=== PATIENT | male | born 1995 | race Caucasian/White ===

== ENCOUNTER 2018-02-16 20:10 | Emergency (ER) | payer MEDICAID ==
[2018-02-16] MEDS ORDERED: NS 2,000 ML IV ONE (20:57)
[2018-02-16] MEDS ORDERED: KETOROLAC 15 MG/1 ML SDV IVP ONE (20:58)
[2018-02-16] MEDS ORDERED: DEXAMETHASONE 10 MG/ML VIAL IVP ONE (20:58)
--- NOTE | 2018-02-16 20:59 | EDPHY ---
H & P Stated Complaint: sore throat, cough Time Seen by Provider: 02/16/18 20:30 HPI/ROS: CHIEF COMPLAINT: Sore throat, feeling ill for 2 weeks HISTORY OF PRESENT ILLNESS: 22-year-old immunocompetent male via private vehicle complaining of 2 weeks of sore throat, fatigue. No rash. No nuchal rigidity. No fever no chills. No back or flank pain. No abdominal pain. No rash. No urinary abnormality. REVIEW OF SYSTEMS: 10 systems reviewed and negative with the exception of the elements mentioned in the history of present illness PAST MEDICAL & SURGICAL HISTORY: Asthma SOCIAL HISTORY: Positive for marijuana smoking PHYSICAL EXAM (Prior to examination, patient consented to physical exam, hands were washed and my usual and customary physical exam procedures followed) 1) GENERAL: Well-developed, well-nourished, alert and oriented. Appears to be in no acute distress. 2) HEAD: Normocephalic, atraumatic 3) HEENT: Pupils equal, round, reactive to light bilaterally. Sclera anicteric. Nasopharynx: Clear. oropharynx, clear, no lesions. Moist mucous membranes. Bilateral tonsils are symmetrically enlarged with white exudate. Uvula midline. No trismus no drooling. No hot potato voice. Ears bilaterally with normal tympanic membranes. 4) NECK: Full range of motion, no meningeal signs. Positive submandibular tender adenopathy. No crepitus. 5) LUNGS: Clear auscultation bilaterally, no wheezes, no rhonchi, no retractions. 6) HEART: Regular rate and rhythm, no murmur, no heave, no gallop. 7) ABDOMEN: No guarding, no rebound, no focal tenderness, negative McBurney's, negative Bettencourt's, negative Rovsing's, negative peritoneal sign, 8) MUSCULOSKELETAL: Moving all extremities, no focal areas of tenderness, no obvious trauma. No peripheral edema or discoloration. 9) BACK: No CVA tenderness, no midline vertebral tenderness, no fluctuance, no step-off, no obvious trauma, no visual or palpable abnormality. 10) SKIN: No rash, no petechiae. 11) Psychiatric: Patient is oriented X 3, there is no agitation. DIFFERENTIAL DIAGNOSIS: In no particular order, my differential diagnosis includes, but is not limited to, strep pharyngitis, viral pharyngitis, peritonsillar abscess, retropharyngeal abscess or plegmon, mononucleosis, meningitis, Lemierre syndrome. - Medical/Surgical History Hx Asthma: Yes Hx Chronic Respiratory Disease: No Hx Diabetes: No Hx Cardiac Disease: No Hx Renal Disease: No Hx Cirrhosis: No Hx Alcoholism: No Hx HIV/AIDS: No Hx Splenectomy or Spleen Trauma: No Other PMH: asthma/peanut allergy - Social History Smoking Status: Former smoker Constitutional: Initial Vital Signs Temperature (C) 36.8 C 02/16/18 20:14 Heart Rate 128 H 02/16/18 20:14 Respiratory Rate 20 02/16/18 20:14 Blood Pressure 139/109 H 02/16/18 20:14 O2 Sat (%) 96 02/16/18 20:14 O2 Delivery Mode Room Air Allergies/Adverse Reactions: tree nut Allergy (Verified 02/16/18 20:13) Home Medications: Medication Instructions Recorded Albuterol 11/27/15 EPINEPHRINE [EPIPEN] 0.3 mg IM ONCE #2 syr 11/27/15 Amoxicillin/Clavulanate Pot 875 mg PO BID #14 tab 02/16/18 [Augmentin 875 mg tab] Medical Decision Making ED Course/Re-evaluation: Care of patient under supervision of secondary supervising physician Dr Mims . Re-evaluation with serial exams most recently at 10:15 p.m. He is resting comfortably. Heart rate in the 90s. Negative strep testing which was obtained prior to my evaluating the patient. Negative mono testing. High clinical suspicion for strep pharyngitis based on patient's presenting signs and symptoms. Recommend empiric treatment. Given Augmentin. Given Decadron in the ER. Recommend follow up with ENT on Monday or Monday (today is Monday night). Usual and customary pharyngitis precautions instructions provided. - Data Points Laboratory Results: 02/16/18 02/16/18 02/16/18 Unknown 21:10 20:40 Monoscreen NEGATIVE (NEGATIVE) Group A Strep Screen NEGATIVE (NEGATIVE) Group A Strep DNA Pending Medications Given: Discontinued Medications Amoxicillin/Clavulanate Potassium (Augmentin 875mg) 875 mg PO EDNOW ONE PRN Reason: Protocol Stop: 02/16/18 22:41 Last Admin: 02/16/18 22:41 Dose: 875 mg Dexamethasone (Decadron Injection) 10 mg IVP EDNOW ONE Stop: 02/16/18 20:59 Last Admin: 02/16/18 21:03 Dose: 10 mg Sodium Chloride (Ns) 2,000 mls @ 0 mls/hr IV ONCE ONE PRN Reason: Wide Open Stop: 02/16/18 20:58 Last Admin: 02/16/18 21:03 Dose: 2,000 mls Ketorolac Tromethamine (Toradol) 15 mg IVP EDNOW ONE Stop: 02/16/18 20:59 Last Admin: 02/16/18 21:03 Dose: 15 mg Departure - Departure Disposition: Home, Routine, Self-Care Clinical Impression: Strep pharyngitis Condition: Good Instructions: Amoxicillin/Clavulanate Potassium (By mouth), Strep Throat (ED) Additional Instructions: Return to the ER immediately if you cannot swallow, have drooling, fevers, neck stiffness, cannot open your jaw, or any other symptoms that concern you. Referrals: Tre Perales MD [Medical Doctor] - As per Instructions Stand Alone Forms: Work Excuse Prescriptions: Amoxicillin/Clavulanate Pot [Augmentin 875 mg tab] 875 mg PO BID #14 tab
[2018-02-16] MEDS ORDERED: AMOXICILLIN/CLAVULANATE POT 875/125 MG TAB PO ONE ×2 (22:38→22:40)
[2018-02-16 22:50] VITALS: BP 128/74
[2018-02-17 11:17] LABS: GROUP A STREP DNA (THROAT) POSITIVE (NEGATIVE)
== END 2018-02-16 22:30 | disposition home or self-care (01) ==
DX: J02.0 Streptococcal pharyngitis (principal)
CPT/HCPCS: 96374; J1100; J1885

== ENCOUNTER 2018-05-06 09:13 | Inpatient (IN) | payer MEDICAID ==
[2018-05-06] MEDS ORDERED: ACETAMINOPHEN 500 MG TAB PO ONE (09:27)
[2018-05-06] MEDS ORDERED: NS 1,000 ML IV ONE (09:27)
[2018-05-06] MEDS ORDERED: methylPREDNISolone SOD SUCC 125 MG/2 ML VIAL IVP ONE (09:27)
[2018-05-06] MEDS ORDERED: IBUPROFEN 800 MG TAB PO ONE (09:27)
[2018-05-06] MEDS ORDERED: IPRATROPIUM/ALBUTEROL 3 ML DEYVIAL IH ONE (09:27)
--- NOTE | 2018-05-06 09:30 | EDPHY ---
H & P Stated Complaint: fever, chills, cough x 5 days Time Seen by Provider: 05/06/18 09:16 HPI/ROS: CHIEF COMPLAINT: Flu-like symptoms x5 days HISTORY OF PRESENT ILLNESS: 22-year-old old immunocompetent male with history of asthma, up-to-date influenza vaccination, complaining of dyspnea, fever, productive cough for the past 5 days. No nuchal rigidity. No headache. No nausea or vomiting. PRIMARY CARE PROVIDER: REVIEW OF SYSTEMS: 10 systems reviewed and negative with the exception of the elements mentioned in the history of present illness PAST MEDICAL & SURGICAL HISTORY: Asthma. Up-to-date influenza vaccination SOCIAL HISTORY: Nonsmoker PHYSICAL EXAM (Prior to examination, patient consented to physical exam, hands were washed and my usual and customary physical exam procedures followed) 1) GENERAL: Well-developed, well-nourished, alert and oriented.. 2) HEAD: Normocephalic, atraumatic 3) HEENT: Pupils equal, round, reactive to light bilaterally. Sclera anicteric. Nasopharynx: Rhinorrhea. oropharynx, clear, no lesions. Dry mucous membranes. Ears bilaterally with normal tympanic membranes. No evidence of otitis media otitis externa 4) NECK: Full range of motion, no meningeal signs. 5) LUNGS: Bilateral end-expiratory wheeze in bibasilar rales. 6) HEART: Regular rate and rhythm, no murmur, no heave, no gallop. 7) ABDOMEN: No guarding, no rebound, no focal tenderness, negative McBurney's, negative Bettencourt's, negative Rovsing's, negative peritoneal sign, 8) MUSCULOSKELETAL: Moving all extremities, no focal areas of tenderness, no obvious trauma. No peripheral edema or discoloration. 9) BACK: No CVA tenderness, no midline vertebral tenderness, no fluctuance, no step-off, no obvious trauma, no visual or palpable abnormality. 10) SKIN: No rash, no petechiae. 11) Psychiatric: Patient is oriented X 3, there is no agitation. DIFFERENTIAL DIAGNOSIS: In no particular order including but not limited to pneumonia, bronchitis, influenza, meningitis - Personal History Current Tetanus Diphtheria and Acellular Pertussis (TDAP): Yes - Medical/Surgical History Hx Asthma: Yes Hx Chronic Respiratory Disease: No Hx Diabetes: No Hx Cardiac Disease: No Hx Renal Disease: No Hx Cirrhosis: No Hx Alcoholism: No Hx HIV/AIDS: No Hx Splenectomy or Spleen Trauma: No Other PMH: asthma/peanut allergy - Social History Smoking Status: Former smoker Constitutional: Initial Vital Signs Temperature (C) 37.9 C 05/06/18 09:14 Heart Rate 146 H 05/06/18 09:14 Respiratory Rate 28 H 05/06/18 09:14 Blood Pressure 134/71 H 05/06/18 09:14 O2 Sat (%) 96 05/06/18 09:14 O2 Delivery Mode Room Air Allergies/Adverse Reactions: tree nut Allergy (Verified 05/06/18 09:18) Home Medications: Medication Instructions Recorded Albuterol [Proventil Inhaler HFA 1 - 2 puffs IH Q4H PRN 05/06/18 (*)] EPINEPHRINE [EPIPEN] 0.3 mg IM ONCE PRN 05/06/18 Fluticasone/Salmeter 250/50Mcg 1 puffs IH BID 05/06/18 [Advair 250/50 (*)] Medical Decision Making - Diagnostics Imaging Results: Imaging Impressions Chest X-Ray 05/06/18 09:25 Impression: 1. Perihilar bronchitis/reactive airways' disease. 2. Superimposed perihilar subsegmental atelectasis versus minimal infiltrates are not excluded. Findings were discussed with Armando Dickson PA-C at 10:35, on 05/06/2018. ED Course/Re-evaluation: 9:30 a.m.: Will obtain diagnostic studies including influenza testing, chest x- ray. Care of patient under supervision of secondary supervising physician Dr Armstrong with whom I discussed case. 11:46 a.m.: Patient has received 2 L of IV fluid and 1st dose of Tamiflu. He has been re-evaluated with serial exams. This time he remains tachycardic in the 120s, saturations on room air in the high 80s. Will plan on admission for influenza pneumonia and hypoxemia. 11:57 a.m.: Consultation with hospitalist, admit to Dr. Jensen - Data Points Laboratory Results: Laboratory Results 05/06/18 09:30 05/06/18 09:30 05/06/18 05/06/1819 09:30 09:30 09:30 WBC RBC Hgb Hct MCV MCH MCHC RDW Plt Count MPV Neut % (Auto) Lymph % (Auto) [place] % (Auto) Eos % (Auto) Baso % (Auto) Nucleat RBC Rel Count Absolute Neuts (auto) Absolute Lymphs (auto) Absolute Monos (auto) Absolute Eos (auto) Absolute Basos (auto) Absolute Nucleated RBC Immature Gran % Seg Neutrophils % Band Neutrophils % Lymphocytes % Monocytes % Eosinophils % Basophils % Metamyelocytes % Myelocytes % Promyelocytes % Blast Cells % Immature Gran # Absolute Seg Neuts Absolute Band Neuts Absolute Lymphocytes Absolute Monocytes Absolute Eosinophils Absolute Basophils Absolute Metamyelocyte Absolute Myelocytes Absolute Promyelocytes Absolute Plasma Cells Nucleated RBCs RBC/WBC/PLT Morphology Absolute Blast Cells Plasma Cells % Platelet Estimate PT 14.2 SEC SEC (12.0-15.0) INR 1.08 (0.83-1.16) APTT 40.0 SEC H SEC (23.0-38.0) VBG Lactic Acid Sodium 136 mEq/L mEq/L (135-145) Potassium 3.8 mEq/L mEq/L (3.5-5.2) Chloride 105 mEq/L mEq/L (97-110) Carbon Dioxide 20 mEq/l L mEq/l (22-31) Anion Gap 11 mEq/L mEq/L (6-14) BUN 10 mg/dL mg/dL (7-23) Creatinine 0.7 mg/dL mg/dL (0.7-1.3) Estimated GFR > 60 Glucose 133 mg/dL H mg/dL (70-100) Calcium 8.8 mg/dL mg/dL (8.5-10.4) Total Bilirubin 0.6 mg/dL mg/dL (0.1-1.4) Nasal Influenza A PCR FLU A DETECTED H (NEGATIVE) Nasal Influenza B PCR NEGATIVE FOR FLU B (NEGATIVE) 05/06/18 05/06/18 09:30 09:30 WBC 8.46 10^3/uL 10^3/uL (3.80-9.50) RBC 5.29 10^6/uL 10^6/uL (4.40-6.38) Hgb 14.9 g/dL g/dL (13.7-17.5) Hct 43.6 % % (40.0-51.0) MCV 82.4 fL fL (81.5-99.8) MCH 28.2 pg pg (27.9-34.1) MCHC 34.2 g/dL g/dL (32.4-36.7) RDW 13.0 % % (11.5-15.2) Plt Count 130 10^3/uL L 10^3/uL (150-400) MPV 10.9 fL fL (8.7-11.7) Neut % (Auto) Not Reported Lymph % (Auto) Not Reported [place] % (Auto) Not Reported Eos % (Auto) Not Reported Baso % (Auto) Not Reported Nucleat RBC Rel Count Not Reported Absolute Neuts (auto) Not Reported Absolute Lymphs (auto) Not Reported Absolute Monos (auto) Not Reported Absolute Eos (auto) Not Reported Absolute Basos (auto) Not Reported Absolute Nucleated RBC Not Reported Immature Gran % Not Reported Seg Neutrophils % 57.4 % % Band Neutrophils % 30.7 % % Lymphocytes % 5.0 % % Monocytes % 6.9 % % Eosinophils % 0.0 % % Basophils % 0.0 % % Metamyelocytes % 0.0 % % Myelocytes % 0.0 % % Promyelocytes % 0.0 % % Blast Cells % 0.0 % % Immature Gran # Not Reported Absolute Seg Neuts 4.86 10^3/uL 10^3/uL (1.70-6.50) Absolute Band Neuts 2.60 10^3/uL H 10^3/uL (0.00-0.70) Absolute Lymphocytes 0.42 10^3/uL L 10^3/uL (1.00-3.00) Absolute Monocytes 0.58 10^3/uL 10^3/uL (0.30-0.80) Absolute Eosinophils 0.00 10^3/uL L 10^3/uL (0.03-0.40) Absolute Basophils 0.00 10^3/uL L 10^3/uL (0.02-0.10) Absolute Metamyelocyte 0.00 10^3/mL 10^3/mL (0.00-0.00) Absolute Myelocytes 0.00 10^3/mL 10^3/mL (0.00-0.00) Absolute Promyelocytes 0.00 10^3/uL 10^3/uL (0.00-0.00) Absolute Plasma Cells 0.00 10^3/uL 10^3/uL (0.00-0.00) Nucleated RBCs 0 /100 WBC /100 WBC (0-0) RBC/WBC/PLT Morphology NORMAL (NORMAL) Absolute Blast Cells 0.00 10^3/uL 10^3/uL (0.00-0.00) Plasma Cells % 0.0 % % Platelet Estimate DECREASED L (ADEQ) PT INR APTT VBG Lactic Acid 1.4 mmol/L mmol/L (0.7-2.1) Sodium Potassium Chloride Carbon Dioxide Anion Gap BUN Creatinine Estimated GFR Glucose Calcium Total Bilirubin Nasal Influenza A PCR Nasal Influenza B PCR Medications Given: Discontinued Medications Acetaminophen (Tylenol) 1,000 mg PO EDNOW ONE Stop: 05/06/18 09:28 Last Admin: 05/06/18 09:52 Dose: 1,000 mg Albuterol/Ipratropium (Duoneb) 3 ml IH EDNOW ONE Stop: 05/06/18 09:28 Last Admin: 05/06/18 09:52 Dose: 3 ml Sodium Chloride (Ns) 1,000 mls @ 0 mls/hr IV ONCE ONE PRN Reason: Wide Open Stop: 05/06/18 09:28 Last Admin: 05/06/18 09:52 Dose: 1,000 mls Ibuprofen (Motrin) 800 mg PO EDNOW ONE Stop: 05/06/18 09:28 Last Admin: 05/06/18 09:52 Dose: 800 mg Methylprednisolone Sodium Succinate (Solu-Medrol) 125 mg IVP EDNOW ONE Stop: 05/06/18 09:28 Last Admin: 05/06/18 09:52 Dose: 125 mg Oseltamivir Phosphate (Tamiflu) 75 mg PO EDNOW ONE Stop: 05/06/18 10:40 Last Admin: 05/06/18 10:49 Dose: 75 mg Departure - Departure Disposition: [facility] Clinical Impression: Influenza, pneumonia, Hypoxemia Condition: Fair
[2018-05-06 10:12] LABS: INR 1.08 (0.83-1.16); PROTIME(PATIENT) 14.2 SEC (12.0-15.0)
[2018-05-06 10:25] LABS: PLATELET COUNT 130 10^3/uL (150-400)
[2018-05-06] MEDS ORDERED: OSELTAMIVIR PHOSPHATE 75 MG CAP PO ONE (10:39)
[2018-05-06] MEDS ORDERED: ONDANSETRON DISINTEGRATING 4 MG TAB PO PRN (15:57)
[2018-05-06] MEDS ORDERED: ONDANSETRON 4 MG/2 ML VIAL IVP PRN (15:57)
[2018-05-06] MEDS ORDERED: ALBUTEROL 60 PUFFS/8 GM MDI IH PRN (15:57)
--- NOTE | 2018-05-06 16:03 | PDGENHP ---
History and Physical - Chief Complaint sob - History of Present Illness 22-year-old old male with history of asthma, up-to-date influenza vaccination, complaining of dyspnea, fever, productive cough for the past 5 days. No nuchal rigidity. No headache. No nausea or vomiting. Found to have Influenza A Afebrile. no cp + cough PAST MEDICAL & SURGICAL HISTORY: Asthma. Up-to-date influenza vaccination SOCIAL HISTORY: Nonsmoker FMHX: non contributory History Information - Allergies/Home Medication List Allergies/Adverse Reactions: tree nut Allergy (Verified 05/06/18 09:18) Home Medications: Albuterol [Proventil Inhaler HFA (*)] 1 - 2 puffs IH Q4H PRN 05/06/18 [Last Taken 05/06/18 08:30] EPINEPHRINE [EPIPEN] 0.3 mg IM ONCE PRN 05/06/18 [Last Taken Unknown] Fluticasone/Salmeter 250/50Mcg [Advair 250/50 (*)] 1 puffs IH BID 05/06/18 [ Last Taken 05/06/18 08:30] I have personally reviewed and updated: medical history, social history - Social History Smoking Status: Former smoker Review of Systems Review of Systems: ROS: 10pt was reviewed & negative except for what was stated in HPI & below Physical Exam Physical Exam: Temp Pulse Resp BP Pulse Ox 37.2 C 101 H 18 138/92 H 89 L 05/06/18 15:14 05/06/18 15:14 05/06/18 15:14 05/06/18 15:14 05/06/18 15:14 Constitutional: no apparent distress Eyes: PERRL, EOMI Ears, Nose, Mouth, Throat: moist mucous membranes Cardiovascular: regular rate and rhythym, No JVD Respiratory: no respiratory distress, reduced air movement, expiratory wheeze Gastrointestinal: normoactive bowel sounds, soft, non-tender abdomen Skin: warm Neurologic: AAOx3 Psychiatric: interacting appropriately, not anxious, not encephalopathic Lymph, Heme, Immunologic: No petechiae Lab Data & Imaging Review 05/06/18 09:30 05/06/18 09:30 WBC 8.46 10^3/uL (3.80-9.50) 05/06/18 09:30 RBC 5.29 10^6/uL (4.40-6.38) 05/06/18 09:30 Hgb 14.9 g/dL (13.7-17.5) 05/06/18 09:30 Hct 43.6 % (40.0-51.0) 05/06/18 09:30 MCV 82.4 fL (81.5-99.8) 05/06/18 09:30 MCH 28.2 pg (27.9-34.1) 05/06/18 09:30 MCHC 34.2 g/dL (32.4-36.7) 05/06/18 09:30 RDW 13.0 % (11.5-15.2) 05/06/18 09:30 Plt Count 130 10^3/uL (150-400) L 05/06/18 09:30 MPV 10.9 fL (8.7-11.7) 05/06/18 09:30 Neut % (Auto) Not Reported 05/06/18 09:30 Lymph % (Auto) Not Reported 05/06/18 09:30 [place] % (Auto) Not Reported 05/06/18 09:30 Eos % (Auto) Not Reported 05/06/18 09:30 Baso % (Auto) Not Reported 05/06/18 09:30 Nucleat RBC Rel Count Not Reported 05/06/18 09:30 Absolute Neuts (auto) Not Reported 05/06/18 09:30 Absolute Lymphs (auto) Not Reported 05/06/18 09:30 Absolute Monos (auto) Not Reported 05/06/18 09:30 Absolute Eos (auto) Not Reported 05/06/18 09:30 Absolute Basos (auto) Not Reported 05/06/18 09:30 Absolute Nucleated RBC Not Reported 05/06/18 09:30 Immature Gran % Not Reported 05/06/18 09:30 Seg Neutrophils % 57.4 % 05/06/18 09:30 Band Neutrophils % 30.7 % 05/06/18 09:30 Lymphocytes % 5.0 % 05/06/18 09:30 Monocytes % 6.9 % 05/06/18 09:30 Eosinophils % 0.0 % 05/06/18 09:30 Basophils % 0.0 % 05/06/18 09:30 Metamyelocytes % 0.0 % 05/06/18 09:30 Myelocytes % 0.0 % 02/17/19 09:30 Promyelocytes % 0.0 % 05/06/18 09:30 Blast Cells % 0.0 % 05/06/18 09:30 Immature Gran # Not Reported 05/06/18 09:30 Absolute Seg Neuts 4.86 10^3/uL (1.70-6.50) 05/06/18 09:30 Absolute Band Neuts 2.60 10^3/uL (0.00-0.70) H 05/06/18 09:30 Absolute Lymphocytes 0.42 10^3/uL (1.00-3.00) L 05/06/18 09:30 Absolute Monocytes 0.58 10^3/uL (0.30-0.80) 05/06/18 09:30 Absolute Eosinophils 0.00 10^3/uL (0.03-0.40) L 05/06/18 09:30 Absolute Basophils 0.00 10^3/uL (0.02-0.10) L 05/06/18 09:30 Absolute Metamyelocyte 0.00 10^3/mL (0.00-0.00) 05/06/18 09:30 Absolute Myelocytes 0.00 10^3/mL (0.00-0.00) 05/06/18 09:30 Absolute Promyelocytes 0.00 10^3/uL (0.00-0.00) 05/06/18 09:30 Absolute Plasma Cells 0.00 10^3/uL (0.00-0.00) 05/06/18 09:30 Nucleated RBCs 0 /100 WBC (0-0) 05/06/18 09:30 RBC/WBC/PLT Morphology NORMAL (NORMAL) 05/06/18 09:30 Absolute Blast Cells 0.00 10^3/uL (0.00-0.00) 05/06/18 09:30 Plasma Cells % 0.0 % 05/06/18 09:30 Platelet Estimate DECREASED (ADEQ) L 05/06/18 09:30 PT 14.2 SEC (12.0-15.0) 05/06/18 09:30 INR 1.08 (0.83-1.16) 05/06/18 09:30 APTT 40.0 SEC (23.0-38.0) H 05/06/18 09:30 VBG Lactic Acid 1.4 mmol/L (0.7-2.1) 05/06/18 09:30 Sodium 136 mEq/L (135-145) 05/06/18 09:30 Potassium 3.8 mEq/L (3.5-5.2) 05/06/18 09:30 Chloride 105 mEq/L (97-110) 05/06/18 09:30 Carbon Dioxide 20 mEq/l (22-31) L 05/06/18 09:30 Anion Gap 11 mEq/L (6-14) 05/06/18 09:30 BUN 10 mg/dL (7-23) 05/06/18 09:30 Creatinine 0.7 mg/dL (0.7-1.3) 05/06/18 09:30 Estimated GFR > 60 05/06/18 09:30 Glucose 133 mg/dL (70-100) H 05/06/18 09:30 Calcium 8.8 mg/dL (8.5-10.4) 05/06/18 09:30 Total Bilirubin 0.6 mg/dL (0.1-1.4) 05/06/18 09:30 Nasal Influenza A PCR FLU A DETECTED (NEGATIVE) H 05/06/18 09:30 Nasal Influenza B PCR NEGATIVE FOR FLU B (NEGATIVE) 05/06/18 09:30 Assessment & Plan Assessment: Hypoxemia (Acute) Influenza, pneumonia (Acute) Asthma Exacerbation Plan: Tamiflu Steroid Nebs Hopefully d/c tomorrow
[2018-05-06] MEDS: ALBUTEROL 3 ML DEYVIAL IH SCH ×2 (16:15→23:10)
[2018-05-06] MEDS: OSELTAMIVIR PHOSPHATE 75 MG CAP PO SCH (17:16)
[2018-05-06] MEDS: ACETAMINOPHEN 325 MG TAB PO PRN (21:01)
[2018-05-06] MEDS: guaiFENesin 600 MG TAB.ER PO PRN (21:28)
[2018-05-06] MEDS: BENZONATATE 100 MG CAP PO PRN (21:29)
[2018-05-07] MEDS: ACETAMINOPHEN 325 MG TAB PO PRN ×3 (03:21→21:20)
[2018-05-07] MEDS: BENZONATATE 100 MG CAP PO PRN ×2 (03:22→21:19)
[2018-05-07] MEDS: ALBUTEROL 3 ML DEYVIAL IH SCH ×4 (05:19→23:48)
[2018-05-07] MEDS ORDERED: NS 1,000 ML IV ONE (08:15)
--- NOTE | 2018-05-07 08:18 | HOSPPROG ---
Hospitalist Progress Note Assessment/Plan: DIAGNOSES: * Acute sepsis onset this am * Influenza a, acute illness * Asthma exacerbation acute * ?pneumonia, community aquired PLANS: * IV fluid boluses started * Sepsis protocol labs ordered * continue steroids and bronchodilators * tamiflu * empiric antibiotic will be added SUBJECTIVE: quite tired, achy coughing more, causing gagging still sob some chills OBJECTIVE Vitals reviewed: Through the morning so far has become markedly tachycardic 127 also tachypneic 22 temperature increasing this morning Exam: awake but groggy, oriented skin febrile dry color ok resps mildly labored lungs some exp wheeze heart regular tachycardic abd soft nondistended nontender, bowel sounds present limbs warm, no edema iv site ok Lab data: No lab data were ordered for this morning but I have now ordered labs for sepsis protocol which are pending microbiology: influenza A positive blood cxs pending Objective: Vital Signs Temp Pulse Resp BP Pulse Ox 37.7 C 127 H 22 H 133/76 H 93 05/07/18 03:10 05/07/18 03:10 05/07/18 03:10 05/07/18 03:10 05/07/18 03:10 05/06/18 05/07/18 05/08/18 06:59 06:59 06:59 Intake Total 2500 Balance 2500 PT 14.2 SEC (12.0-15.0) 05/06/18 09:30 INR 1.08 (0.83-1.16) 05/06/18 09:30 - Time Spent With Patient Time Spent with Patient: greater than 35 minutes Time Spent with Patient: Greater than 35 minutes spent on this patients care, greater than 50% of time spent counseling, educating, and coordinating care regarding the above mentioned plan. ICD10 Worksheet Patient Problems: Problems Problem Status Onset Hypoxemia Acute Influenza, pneumonia Acute
[2018-05-07] MEDS: predniSONE 20 MG TAB PO SCH (08:46)
[2018-05-07] MEDS: OSELTAMIVIR PHOSPHATE 75 MG CAP PO SCH ×2 (08:46→17:25)
[2018-05-07 09:24] LABS: PLATELET COUNT 176 10^3/uL (150-400)
--- NOTE | 2018-05-07 09:27 | ASMTCASEMG ---
Living Arrangements What is your living Answers: Alone arrangement? Who do you live with? Type Of Residence What kind of residence do Answers: House you live in? Discharge Plan Comments Coordination Status Comments Notes: Patient is a 22yo single male who has been admitted for influenza pneumonia and hypoxemia. No therapies ordered at this time. Patient will likely discharge independently. CM available if d/c needs arise. Date Signed: 05/07/2018 09:27 AM Electronically Signed By:Brenda Ramirez LCSW
[2018-05-07] MEDS: NS 1,000 ML IV SCH (18:15)
--- NOTE | 2018-05-07 19:18 | PDMN ---
Medical Necessity Medical necessity: [employer] M160 Sepsis, A-2 days: 22 yo w/ +influenza A in setting of asthma hx c/o dyspnea, fever, cough x 5 days. Initially OBS but met sepsis criteria after OBS monitoring, cont with tachycardia and tachypnea, remains on IVF, pt still with poor PO intake and very weak requiring additional MN for ongoing monitoring and tx, starting empiric IV antibx. Change to IP status 05/07@1802 per MD order
[2018-05-07] MEDS: guaiFENesin 600 MG TAB.ER PO PRN (21:19)
[2018-05-08] MEDS: ACETAMINOPHEN 325 MG TAB PO PRN (04:59)
[2018-05-08] MEDS: BENZONATATE 100 MG CAP PO PRN (04:59)
[2018-05-08] MEDS: guaiFENesin 600 MG TAB.ER PO PRN (04:59)
[2018-05-08] MEDS: NS 1,000 ML IV SCH (05:00)
[2018-05-08] MEDS: ALBUTEROL 3 ML DEYVIAL IH SCH ×3 (05:17→16:42)
[2018-05-08] MEDS: predniSONE 20 MG TAB PO SCH (08:34)
[2018-05-08] MEDS: OSELTAMIVIR PHOSPHATE 75 MG CAP PO SCH ×2 (08:34→17:34)
[2018-05-08 16:06] VITALS: BP 131/87
--- NOTE | 2018-05-08 16:43 | PDDCSUM ---
Discharge Summary Discharge Summary: DISCHARGE DIAGNOSES: * Acute sepsis * Acute influenza a infection * Acute asthma exacerbation with significant dyspnea * Dehydration * Acute anorexia due to above with inability to take in oral fluids HOSPITAL COURSE SUMMARY: This patient with asthma came in with acute asthma exacerbation and acute sepsis with market tachycardia, fevers, elevated procalcitonin and mild metabolic acidosis. He was found to have acute influenza A. The patient was admitted the hospital and treated with IV fluids, Tamiflu, steroids bronchodilators. Overnight he had some improvement on the 1st night but the following day he remained markedly tachycardic throughout the day despite additional fluid boluses. He did not develop hypotension or acute organ failure. By the day of discharge his tachycardia is resolved and he is now able to eat and drink, ambulating in the hallway. He does have significant wheezing still on his lung exam but has reasonable air movement. He is felt at this time stable for discharge to home He will take Tamiflu for 5 more doses twice daily. 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 PENDING TEST RESULTS: None MEDICATION CHANGES: Addition of oseltamivir 75 mg twice daily Addition of prednisone 20 mg daily Addition of Tessalon Perles for p.r.n. Use for cough FOLLOW-UP PLAN: Follow up with his primary care physician as needed He may return to work on May 13 Greater than 35 minutes bedside and care coordination time today
== END 2018-05-08 17:45 | disposition home or self-care (01) | DRG 720 ==
LOC: F3E 13:11 → OBSVTOIN 05-07 18:02
PROVIDERS: ADMIT Family Medicine; ATTEND Family Medicine
DX: A41.9 Sepsis, unspecified organism (principal); J45.901 Unspecified asthma with (acute) exacerbation; J10.1 Influenza due to other identified influenza virus with other respiratory manifestations; E86.0 Dehydration; R63.0 Anorexia; Z87.891 Personal history of nicotine dependence
CPT/HCPCS: 96374; G0378; J2930; J7512; J7613